=== PATIENT | female | born 1955 | race Caucasian/White ===

== ENCOUNTER 2017-04-09 12:34 | Observation (INO) | payer OTHER ==
--- NOTE | 2017-04-09 12:56 | ED ---
General Adult HPI - General Chief complaint: Chest Pain Stated complaint: Abnormal EKG Time Seen by Provider: 04/09/17 12:51 Source: patient, RN notes reviewed, old records reviewed Mode of arrival: wheelchair Limitations: no limitations - History of Present Illness Initial comments: This is a 7-year-old female to the ER for evaluation regards to chest pain. Patient is having anterior chest pain. Patient has long remote history of smoking. Patient has had chest pain in the past but not as significant. Pain started yesterday with nausea dizziness and some fatigue. Today she had anterior heaviness chest in the back across her shoulders. No fever cough or congestion, no shortness of breath or diaphoresis - Related Data Home Medications Medication Instructions Recorded Confirmed Escitalopram [Lexapro] 20 mg PO DAILY 09/29/14 04/09/17 Losartan [Cozaar] 25 mg PO DAILY 04/09/17 04/09/17 Magnesium Oxide 400 mg PO DAILY 04/09/17 04/09/17 Metoprolol Succinate (ER) [Toprol 50 mg PO DAILY 04/09/17 04/09/17 Xl] Pregabalin [Lyrica] 50 mg PO TID 04/09/17 04/09/17 buPROPion XL [Wellbutrin Xl] 150 mg PO DAILY 04/09/17 04/09/17 Previous Rx's Medication Instructions Recorded Aspirin 325 mg PO DAILY #30 tab 04/26/15 Allergies Allergy/AdvReac Type Severity Reaction Status Date / Time No Known Allergies Allergy Verified 04/09/17 13:22 Review of Systems ROS Statement: Those systems with pertinent positive or pertinent negative responses have been documented in the HPI. ROS Other: All systems not noted in ROS Statement are negative. Past Medical History Past Medical History: Hyperlipidemia Additional Past Medical History / Comment(s): Neuropothy, Chonic Bronchitits History of Any Multi-Drug Resistant Organisms: None Reported Past Surgical History: Appendectomy, Cholecystectomy Additional Past Surgical History / Comment(s): left Elbow surgary, LAP BAND 2007 Past Anesthesia/Blood Transfusion Reactions: No Reported Reaction Past Psychological History: No Psychological Hx Reported Smoking Status: Former smoker Past Alcohol Use History: None Reported Past Drug Use History: None Reported - Past Family History Daughter(s) Family Medical History: Blood Disorder Additional Family Medical History / Comment(s): Blood factor number 2. blood clots frequently, causes lesions on the brain. also has MS. General Exam Limitations: no limitations General appearance: alert, in no apparent distress Head exam: Present: atraumatic, normocephalic, normal inspection Eye exam: Present: normal appearance, PERRL, EOMI. Absent: scleral icterus, conjunctival injection, periorbital swelling ENT exam: Present: normal exam, mucous membranes moist Neck exam: Present: normal inspection. Absent: tenderness, meningismus, lymphadenopathy Respiratory exam: Present: normal lung sounds bilaterally. Absent: respiratory distress, wheezes, rales, rhonchi, stridor Cardiovascular Exam: Present: regular rate, normal rhythm, normal heart sounds. Absent: systolic murmur, diastolic murmur, rubs, gallop, clicks GI/Abdominal exam: Present: soft, normal bowel sounds. Absent: distended, tenderness, guarding, rebound, rigid Extremities exam: Present: normal inspection, full ROM, normal capillary refill. Absent: tenderness, pedal edema, joint swelling, calf tenderness Back exam: Present: normal inspection Neurological exam: Present: alert, oriented X3, CN II-XII intact Psychiatric exam: Present: normal affect, normal mood Skin exam: Present: warm, dry, intact, normal color. Absent: rash Course Vital Signs 04/09/17 04/09/17 04/09/17 12:47 14:00 15:08 Temperature 97.6 F 98.2 F Pulse Rate 74 62 59 L Respiratory 18 18 18 Rate Blood Pressure 163/83 141/63 152/82 O2 Sat by Pulse 97 98 97 Oximetry - Reevaluation(s) Reevaluation #1: 04/09/17 15:28 Patient has relaxing unremitting chest pain here in the emergency room heaviness on her chest EKG Findings - EKG Comments: EKG Findings:: EKG shows normal sinus rhythm rate of 72, SC 148, QRS 80, QTC 479 Medical Decision Making - Medical Decision Making 61 female the ER for evaluation. Patient was is stay for evaluation of chest pain. Severe chest pain. Does better on her back. X-rays CT negative troponin negative patient will be admitted for cardiac observation - Lab Data Result diagrams: 04/09/17 13:30 04/09/17 13:30 Lab Results 04/09/17 04/09/17 04/09/17 Range/Units 13:30 13:30 13:30 WBC 7.4 (3.8-10.6) k/uL RBC 4.92 (3.80-5.40) m/uL Hgb 14.2 (11.4-16.0) gm/dL Hct 45.0 (34.0-46.0) % MCV 91.5 (80.0-100.0) fL MCH 28.8 (25.0-35.0) pg MCHC 31.5 (31.0-37.0) g/dL RDW 14.9 (11.5-15.5) % Plt Count 307 (150-450) k/uL Neutrophils % 58 % Lymphocytes % 27 % Monocytes % 8 % Eosinophils % 4 % Basophils % 1 % Neutrophils # 4.3 (1.3-7.7) k/uL Lymphocytes # 2.0 (1.0-4.8) k/uL Monocytes # 0.6 (0-1.0) k/uL Eosinophils # 0.3 (0-0.7) k/uL Basophils # 0.1 (0-0.2) k/uL PT (9.0-12.0) sec INR (<1.2) APTT (22.0-30.0) sec Sodium 139 (137-145) mmol/L Potassium 4.3 (3.5-5.1) mmol/L Chloride 103 (98-107) mmol/L Carbon Dioxide 28 (22-30) mmol/L Anion Gap 8 mmol/L BUN 13 (7-17) mg/dL Creatinine 0.76 (0.52-1.04) mg/dL Est GFR (MDRD) Af Amer >60 (>60 ml/min/1.73 sqM) Est GFR (MDRD) Non-Af >60 (>60 ml/min/1.73 sqM) Glucose 95 (74-99) mg/dL Calcium 9.5 (8.4-10.2) mg/dL Magnesium 2.1 (1.6-2.3) mg/dL Total Bilirubin 1.0 (0.2-1.3) mg/dL AST 21 (14-36) U/L ALT 37 (9-52) U/L Alkaline Phosphatase 103 (38-126) U/L Total Creatine Kinase 65 (30-135) U/L CK-MB (CK-2) 0.8 (0.0-2.4) ng/mL CK-MB (CK-2) Rel Index 1.2 Troponin I <0.012 (0.000-0.034) ng/mL NT-Pro-B Natriuret Pep pg/mL Total Protein 6.3 (6.3-8.2) g/dL Albumin 3.8 (3.5-5.0) g/dL Lipase 65 (23-300) U/L 04/09/17 04/09/17 Range/Units 13:30 13:30 WBC (3.8-10.6) k/uL RBC (3.80-5.40) m/uL Hgb (11.4-16.0) gm/dL Hct (34.0-46.0) % MCV (80.0-100.0) fL MCH (25.0-35.0) pg MCHC (31.0-37.0) g/dL RDW (11.5-15.5) % Plt Count (150-450) k/uL Neutrophils % % Lymphocytes % % Monocytes % % Eosinophils % % Basophils % % Neutrophils # (1.3-7.7) k/uL Lymphocytes # (1.0-4.8) k/uL Monocytes # (0-1.0) k/uL Eosinophils # (0-0.7) k/uL Basophils # (0-0.2) k/uL PT 10.2 (9.0-12.0) sec INR 1.0 (<1.2) APTT 22.5 (22.0-30.0) sec Sodium (137-145) mmol/L Potassium (3.5-5.1) mmol/L Chloride (98-107) mmol/L Carbon Dioxide (22-30) mmol/L Anion Gap mmol/L BUN (7-17) mg/dL Creatinine (0.52-1.04) mg/dL Est GFR (MDRD) Af Amer (>60 ml/min/1.73 sqM) Est GFR (MDRD) Non-Af (>60 ml/min/1.73 sqM) Glucose (74-99) mg/dL Calcium (8.4-10.2) mg/dL Magnesium (1.6-2.3) mg/dL Total Bilirubin (0.2-1.3) mg/dL AST (14-36) U/L ALT (9-52) U/L Alkaline Phosphatase (38-126) U/L Total Creatine Kinase (30-135) U/L CK-MB (CK-2) (0.0-2.4) ng/mL CK-MB (CK-2) Rel Index Troponin I (0.000-0.034) ng/mL NT-Pro-B Natriuret Pep 71 pg/mL Total Protein (6.3-8.2) g/dL Albumin (3.5-5.0) g/dL Lipase (23-300) U/L - Radiology Data Radiology results: report reviewed (Chest x-ray and CT chest are negative), image reviewed Critical Care Time Critical Care Time: Yes Total Critical Care Time: 31 Disposition Clinical Impression: Chest pain Disposition: ADMITTED IP TO THIS [facility] Condition: Undetermined Referrals: Feroz Toney MD [Primary Care Provider] - 1-2 days
[2017-04-09 13:50] LABS: Basophils # (A) 0.1 k/uL (0-0.2); Basophils % (A) 1 %; Eosinophils # (A) 0.3 k/uL (0-0.7); Eosinophils % (A) 4 %; HGB 14.2 gm/dL (11.4-16.0); Lymphocytes % (A) 27 %; MCH 28.8 pg (25.0-35.0); MCHC 31.5 g/dL (31.0-37.0); MCV 91.5 fL (80.0-100.0); Mean Platelet Volume 8.1; Monocytes # (A) 0.6 k/uL (0-1.0); Monocytes % (A) 8 %; Neutrophils # (A) 4.3 k/uL (1.3-7.7); Neutrophils % (A) 58 %; Platelet Count 307 k/uL (150-450); RBC 4.92 m/uL (3.80-5.40); RDW 14.9 % (11.5-15.5); WBC 7.4 k/uL (3.8-10.6)
[2017-04-09 13:55] LABS: Partial Thromboplastin Time 22.5 sec (22.0-30.0); Prothrombin Time 10.2 sec (9.0-12.0)
[2017-04-09 14:00] LABS: ALT 37 U/L (9-52); AST 21 U/L (14-36); Albumin 3.8 g/dL (3.5-5.0); Alkaline Phosphatase 103 U/L (38-126); Anion Gap 8 mmol/L; Blood Urea Nitrogen 13 mg/dL (7-17); Calcium 9.5 mg/dL (8.4-10.2); Carbon Dioxide 28 mmol/L (22-30); Chloride 103 mmol/L (98-107); Glucose 95 mg/dL (74-99); Lipase 65 U/L (23-300); Magnesium 2.1 mg/dL (1.6-2.3); Potassium 4.3 mmol/L (3.5-5.1); Sodium 139 mmol/L (137-145); Total Protein 6.3 g/dL (6.3-8.2)
--- NOTE | 2017-04-09 14:13 | XR ---
EXAMINATION TYPE: XR chest 2V DATE OF EXAM: 04/09/2017 COMPARISON: 04/24/2015 HISTORY: 61-year-old female with chest pain TECHNIQUE: Frontal and lateral views FINDINGS: Heart border line enlarged. Mild diffuse interstitial prominence similar to prior. No consolidation o r pleural effusion seen though the left base is underpenetrated limiting its assessment. IMPRESSION: Borderline heart size. Chronic-appearing changes, possible bronchitis/asthma. No definite acute proce ss otherwise seen.
[2017-04-09] MEDS ORDERED: RX INFO: IV CONTRAST WAS GIVEN 1 EACH MISC MISCELLANE PRN (14:14)
[2017-04-09] MEDS ORDERED: SODIUM CHLORIDE 0.9% 1,000 ML IV STA (14:14)
[2017-04-09 14:15] LABS: Creatine Kinase 65 U/L (30-135)
[2017-04-09 14:26] LABS: Creatine Kinase MB 0.8 ng/mL (0.0-2.4); Troponin I <0.012 ng/mL (0.000-0.034)
--- NOTE | 2017-04-09 14:53 | CT ---
EXAMINATION TYPE: CT angio chest DATE OF EXAM: 04/09/2017 COMPARISON: NONE HISTORY: Patient complains of difficulty breathing and chest pain. CT DLP: 625.5 mGycm CONTRAST: CT chest with contrast and 3D reconstruction with MIP imaging is performed with IV Contrast, patient injected with 100 mL of Omnipaque 350. Contrast-enhanced CT of the chest was performed through the course of the pulmonary arteries with rae g and mediastinal window settings submitted. 3D reconstruction with MIP imaging was also performed. PULMONARY ARTERIES: The pulmonary arteries and their major tributaries are patent. I do not see amanda dence for sizable filling defect to suggest pulmonary embolic process. LUNGS: The lungs are clear and free of infiltrate. No evidence for atelectasis. No pulmonary nodule or mass is detected. No pleural effusion. MEDIASTINUM: Thoracic aorta is of normal caliber . The heart is not enlarged. No evidence for media stinal mass. No mediastinal lymph nodes greater than 1cm. Left thyroid nodule measures approximately 3.4 cm. HILAR STRUCTURES: No evidence for mass. No hilar lymph nodes greater than 1 cm. UPPER ABDOMEN: There is evidence of pneumobilia. Gastric banding device is in place. Scoliotic curvat ure thoracic spine convex to the right.. IMPRESSION: 1. No evidence for Pulmonary embolism at this time.
[2017-04-09] MEDS ORDERED: HEPARIN SODIUM,PORCINE 5,000 UNIT/ML 1 ML VIAL IV ONE (15:26)
[2017-04-09] MEDS ORDERED: MORPHINE SULFATE 2 MG/ML SYRINGE IV PRN (15:26)
[2017-04-09] MEDS ORDERED: NITROGLYCERIN SL TABS 0.4 MG TAB SUBLINGUAL PRN (15:26)
[2017-04-09] MEDS ORDERED: ASPIRIN 81 MG PO STA (15:26)
[2017-04-09] MEDS ORDERED: HEPARIN SOD,PORK IN 0.45% NACL 25,000 UNIT in 0.45% NACL 1 500ML.BAG IV SCH (15:30)
[2017-04-09] MEDS ORDERED: ACETAMINOPHEN TAB 325 MG TAB PO PRN (19:37)
[2017-04-09 19:52] LABS: Creatine Kinase 56 U/L (30-135)
[2017-04-09 20:02] LABS: Creatine Kinase MB 0.8 ng/mL (0.0-2.4); Troponin I <0.012 ng/mL (0.000-0.034)
[2017-04-09] MEDS: METOPROLOL TARTRATE 25 MG TAB PO SCH (20:52)
[2017-04-09] MEDS: PREGABALIN 50 MG CAP PO SCH (20:52)
[2017-04-09] MEDS ORDERED: ALBUTEROL NEBULIZED 2.5 MG/3 ML INHALATION PRN (22:19)
--- NOTE | 2017-04-09 22:25 | P.HPIM ---
History of Present Illness H&P Date: 04/09/17 Chief Complaint: Chest pain Patient is a 61-year-old female with known history of hyperlipidemia, hypertension and depression came to the hospital with complaints of chest pain. Pain is mainly across upper back of the chest and between the shoulder blades which has been present for the past 2 days. Today patient also developed jaw tingling and shortness of breath. No cough or sputum production. No fever no chills. Patient also felt nauseated in the morning. No abscess or vomiting. Denied any recent illnesses or sick contacts at home. No recent travel. Denied any injury otherwise. Patient had previous stress test in November [address] angiogram showed no recurrence of pulmonary embolism Chest x-ray showed borderline heart size. Chronic changes possible bronchitis/ asthma. No definitive acute process. Troponin 2 negative Review of Systems Constitutional: Patient denies any fever or chills . No generalized weakness or weight loss. Abdomen: Patient denied nausea vomiting and diarrhea and abdominal pain. Cardiovascular: Patient denies any chest pain or short of breath no palpitations. Respiratory: patient denied any cough is from production. No shortness of breath Neurologic: Patient denied any numbness or tingling headache. Musculoskeletal: Patient denies any complaints of joint swelling or deformity. Skin: Negative Psychiatric: Negative Endocrine: No heat or cold intolerance. No recent weight gain. Genitourinary: No dysuria or hematuria. All other 14 point ROS negative except the above Past Medical History Past Medical History: Hyperlipidemia Additional Past Medical History / Comment(s): Neuropothy, Chonic Bronchitits History of Any Multi-Drug Resistant Organisms: None Reported Past Surgical History: Appendectomy, Cholecystectomy Additional Past Surgical History / Comment(s): left Elbow surgary, LAP BAND 2007 Past Anesthesia/Blood Transfusion Reactions: No Reported Reaction Past Psychological History: No Psychological Hx Reported Smoking Status: Former smoker Past Alcohol Use History: None Reported Past Drug Use History: None Reported - Past Family History Daughter(s) Family Medical History: Blood Disorder Additional Family Medical History / Comment(s): Blood factor number 2. blood clots frequently, causes lesions on the brain. also has MS. Father Family Medical History: Cancer, Myocardial Infarction ([place]) Additional Family Medical History / Comment(s): thyroid cancer Mother Family Medical History: Cancer, Congestive Heart Failure (CHF) Additional Family Medical History / Comment(s): pancareatic cancer Medications and Allergies Home Medications Medication Instructions Recorded Confirmed Type Escitalopram [Lexapro] 20 mg PO DAILY 09/29/14 04/09/17 History Aspirin 325 mg PO DAILY #30 tab 04/26/15 04/09/17 Rx Losartan [Cozaar] 25 mg PO DAILY 04/09/17 04/09/17 History Magnesium Oxide 400 mg PO DAILY 04/09/17 04/09/17 History Metoprolol Succinate (ER) [Toprol 50 mg PO DAILY 04/09/17 04/09/17 History Xl] Pregabalin [Lyrica] 50 mg PO TID 04/09/17 04/09/17 History buPROPion XL [Wellbutrin Xl] 150 mg PO DAILY 04/09/17 04/09/17 History Allergies Allergy/AdvReac Type Severity Reaction Status Date / Time No Known Allergies Allergy Verified 04/09/17 13:22 Physical Exam Vitals: Vital Signs Temp Pulse Resp BP Pulse Ox 04/09/17 15:52 63 17 156/79 98 04/09/17 15:08 98.2 F 59 L 18 152/82 97 04/09/17 14:00 62 18 141/63 98 04/09/17 12:47 97.6 F 74 18 163/83 97 Intake and Output 04/09/17 04/09/17 04/09/17 06:59 14:59 22:59 Other: Weight 136.078 kg Patient Weight 04/10/17 06:59 Weight 136.078 kg PHYSICAL EXAMINATION: Patient is lying in the bed comfortably, no acute distress, awake alert and oriented.. HEENT: Normocephalic. Neck is supple. Pupils reactive. Nostrils clear. Oral cavity is moist. Ears reveal no drainage. Neck reveals no JVD, carotid bruits, or thyromegaly. CHEST EXAMINATION: Trachea is central. Symmetrical expansion. Lung roberts clear to auscultation and percussion. CARDIAC: Normal S1, S2 with no gallops. No murmurs ABDOMEN: Soft. Bowel sounds normal. No organomegaly. No abdominal bruits. Extremities: reveal no edema. No clubbing or cyanosis Neurologically awake, alert, oriented x3 with well-coordinated movements. No focal deficits noted Skin: No rash or skin lesions. Psychiatric: Coperative. Nonsuicidal Musculoskeletal: No joint swelling or deformity. Normal range of motion. Results CBC & Chem 7: 04/09/17 13:30 04/09/17 13:30 Thrombosis Risk Factor Assmnt - DVT/VTE Prophylaxis DVT/VTE Prophylaxis: Pharmacologic Prophylaxis ordered Assessment and Plan Assessment: Atypical chest pain possible unstable angina Hypertension Hyperlipidemia Bronchial asthma Depression Morbid obesity with BMI 42.8 Plan: Patient was started on heparin drip and will continue with telemetry monitoring and serial EKG and troponins. Cardiology evaluation. CTA showed no evidence of pulmonary embolism or dissection. Continue the home medications and albuterol nebulization when necessary. Further recommendations based on the clinical course. Time with Patient: Greater than 30
[2017-04-09] MEDS: HEPARIN SODIUM,PORCINE 5,000 UNIT/ML 1 ML VIAL IV PRN (22:33)
[2017-04-10 01:19] LABS: Creatine Kinase 47 U/L (30-135)
[2017-04-10 01:32] LABS: Creatine Kinase MB 0.8 ng/mL (0.0-2.4); Troponin I <0.012 ng/mL (0.000-0.034)
[2017-04-10 04:39] LABS: Mean Platelet Volume 7.2; Platelet Count 304 k/uL (150-450)
[2017-04-10] MEDS: HEPARIN SODIUM,PORCINE 5,000 UNIT/ML 1 ML VIAL IV PRN (05:26)
[2017-04-10] MEDS ORDERED: ASPIRIN 325 MG TAB PO SCH (09:00)
[2017-04-10] MEDS ORDERED: ESCITALOPRAM 20 MG TAB PO SCH (09:00)
[2017-04-10] MEDS ORDERED: ATORVASTATIN 80 MG TAB PO SCH (09:00)
[2017-04-10] MEDS ORDERED: buPROPion XL 150 MG TAB.ER.24H PO SCH (09:00)
[2017-04-10] MEDS ORDERED: LOSARTAN 25 MG TAB PO SCH (09:00)
[2017-04-10] MEDS ORDERED: MAGNESIUM OXIDE 400 MG TAB PO SCH (09:00)
[2017-04-10] MEDS: PREGABALIN 50 MG CAP PO SCH (09:27)
[2017-04-10] MEDS: METOPROLOL TARTRATE 25 MG TAB PO SCH (09:27)
--- NOTE | 2017-04-10 10:46 | ECHOF ---
Referral Reason:chest pain MEASUREMENTS -------- HEIGHT: 152.4 cm WEIGHT: 135.2 kg BP: RVIDd: 2.8 cm (< 3.3) IVSd: 1.3 cm (0.6 - 1.1) LVIDd: 4.7 cm (3.9 - 5.3) LVPWd: 1.1 cm (0.6 - 1.1) IVSs: 1.8 cm LVIDs: 3.6 cm LVPWs: 1.6 cm LA Diam: 2.8 cm (2.7 - 3.8) Ao Diam: 3.3 cm (2.0 - 3.7) AV Cusp: 2.1 cm (1.5 - 2.6) LA Diam: 3.3 cm (2.7 - 3.8) MV EXCURSION: 20.824 mm (> 18.000) MV EF SLOPE: 83 mm/s (70 - 150) EPSS: 0.7 cm MV E Cory: 0.68 m/s MV DecT: 197 ms MV A Cory: 0.75 m/s MV E/A Ratio: 0.91 RAP: 5.00 mmHg RVSP: 21.80 mmHg FINDINGS -------- Sinus rhythm. This was a technically adequate study. Morbid Obesity The left ventricular size is normal. There is moderate concentric left ventricular hypertrophy. O verall left ventricular systolic function is low-normal with, an EF between 50 - 55 %. The right ventricle is normal in size. The left atrial size is normal. The right atrial size is normal. The aortic valve is trileaflet, and appears structurally normal. No aortic stenosis or regurgitation. Mild mitral regurgitation is present. Mild tricuspid regurgitation present. There is no evidence of pulmonary hypertension. The right v entricular systolic pressure, as measured by Doppler, is 21.80mmHg. There is no pulmonic regurgitation present. The aortic root size is normal. There is no pericardial effusion. CONCLUSIONS -------- 1. Morbid Obesity 2. The left ventricular size is normal. 3. There is moderate concentric left ventricular hypertrophy. 4. Overall left ventricular systolic function is low-normal with, an EF between 50 - 55 %. 5. The aortic valve is trileaflet, and appears structurally normal. No aortic stenosis or regurgitati on. 6. Mild mitral regurgitation is present. 7. Mild tricuspid regurgitation present. 8. There is no evidence of pulmonary hypertension. 9. The right ventricular systolic pressure, as measured by Doppler, is 21.80mmHg. 10. There is no pulmonic regurgitation present. 11. The aortic root size is normal. 12. There is no pericardial effusion. STRATEGIC PLANNING SPECIALIST: Maggi Rizo RDCS
[2017-04-10 11:53] VITALS: BP 106/64; PULSE 59; RESP 18; TEMP 98.1
--- NOTE | 2017-04-10 12:27 | P.CRDCN ---
History of Present Illness Consult date: 04/10/17 Consult reason: chest pain History of present illness: Mrs. King is a pleasant 61-year-old female past medical history significant for hypertension, dyslipidemia, TIA and former tobacco use. The past 2 days she has been experiencing mid and upper right-sided back pain. The pain then radiated around to the anterior mid sternal chest region. This is associated with mild shortness of breath and mild nausea. She also describes intermittent tingling of the right jaw and right fingers. The pain is worse with movement and reproducible with palpation. When asked to move forward in bed for lung examination she groaned and winced in pain. She denies associated dizziness, palpitations, diaphoresis or vomiting. EKG on arrival reveals sinus mechanism with no acute ST or T-wave abnormality Chest x-ray negative for acute cardiopulmonary process. CT angiography negative for pulmonary embolism. Laboratory data reviewed, cardiac enzymes negative 3, LDL 110, hemoglobin 14.2 , platelets 304, magnesium 2.1, potassium 4.3. Current cardiac medications include Toprol 50 mg daily, losartan 25 mg daily and aspirin 325 mg daily per neurology. Most recent echocardiogram was performed in February 2016 revealed preserved left ventricular systolic function with EF 60-65% and no valvular heart disease. Most recent stress test was performed February 2016 and was a negative dobutamine stress echocardiogram. Telemetry tracings from last night reveal an episode of nonsustained ventricular tachycardia 5 beats. Review of Systems CONSTITUTIONAL: Denies fever. Denies chills. EYES: Denies blurred vision. Denies vision changes. Denies eye pain. EARS, NOSE, MOUTH & THROAT: Denies headache. Denies sore throat. Denies ear pain. CARDIOVASCULAR: Complains of reproducible midsternal chest pain with shortness of breath. Denies orthopnea. Denies PND. Denies palpitations. RESPIRATORY: Denies cough. GASTROINTESTINAL: Denies abdominal pain. Denies diarrhea. Denies constipation. Denies nausea. Denies vomiting. MUSCULOSKELETAL: Complains of upper back pain, worse with movement. INTEGUMENTARY: Denies pruitis. Denies rash. NEUROLOGIC: Denies numbness. Denies tingling. Denies weakness. PSYCHIATRIC: Denies anxiety. Denies depression. ENDOCRINE: Denies fatigue. Denies weight change. Denies polydipsia. Denies polyurina. GENITOURINARY: Denies burning, hematuria or urgency with micturation. HEMATOLOGIC: Denies history of anemia. Denies bleeding. Past Medical History Past Medical History: Hyperlipidemia Additional Past Medical History / Comment(s): Neuropothy, Chonic Bronchitits History of Any Multi-Drug Resistant Organisms: None Reported Past Surgical History: Appendectomy, Cholecystectomy Additional Past Surgical History / Comment(s): left Elbow surgary, LAP BAND 2008 Past Anesthesia/Blood Transfusion Reactions: No Reported Reaction Past Psychological History: No Psychological Hx Reported Smoking Status: Former smoker Past Alcohol Use History: None Reported Past Drug Use History: None Reported - Past Family History Father Family Medical History: Cancer, Myocardial Infarction (CO) Additional Family Medical History / Comment(s): thyroid cancer Mother Family Medical History: Cancer, Congestive Heart Failure (CHF) Additional Family Medical History / Comment(s): pancareatic cancer Daughter(s) Family Medical History: Blood Disorder Additional Family Medical History / Comment(s): Blood factor number 2. blood clots frequently, causes lesions on the brain. also has MS. Medications and Allergies Home Medications Medication Instructions Recorded Confirmed Type Escitalopram [Lexapro] 20 mg PO DAILY 09/29/14 04/09/17 History Aspirin 325 mg PO DAILY #30 tab 04/26/15 04/09/17 Rx Losartan [Cozaar] 25 mg PO DAILY 04/09/17 04/09/17 History Magnesium Oxide 400 mg PO DAILY 04/09/17 04/09/17 History Metoprolol Succinate (ER) [Toprol 50 mg PO DAILY 04/09/17 04/09/17 History Xl] Pregabalin [Lyrica] 50 mg PO TID 04/09/17 04/09/17 History buPROPion XL [Wellbutrin Xl] 150 mg PO DAILY 04/09/17 04/09/17 History Allergies Allergy/AdvReac Type Severity Reaction Status Date / Time No Known Allergies Allergy Verified 04/09/17 13:22 Physical Exam Vitals: Vital Signs Temp Pulse Pulse Pulse Resp BP BP 04/10/17 08:00 97.7 F 60 16 161/86 04/10/17 04:00 97.4 F L 56 L 16 129/70 04/10/17 03:41 16 04/10/17 00:00 97.7 F 63 16 96/48 04/09/17 23:55 16 04/09/17 20:00 98.0 F 69 16 153/79 04/09/17 16:53 98 F 63 16 166/79 04/09/17 15:52 63 17 156/79 04/09/17 15:08 98.2 F 59 L 18 152/82 04/09/17 14:00 62 18 141/63 04/09/17 13:30 63 04/09/17 12:47 97.6 F 74 18 163/83 Pulse Ox 04/10/17 08:00 94 L 04/10/17 04:00 94 L 04/10/17 03:41 04/10/17 00:00 100 04/09/17 23:55 04/09/17 20:00 94 L 04/09/17 16:53 96 04/09/17 15:52 98 04/09/17 15:08 97 04/09/17 14:00 98 04/09/17 13:30 04/09/17 12:47 97 Intake and Output 04/09/17 04/10/17 04/10/17 22:59 06:59 14:59 Intake Total 124.667 430.08 Balance 124.667 430.08 Intake: IV 240 0.9@20 120 Heparin Sod,Pork in 0.45% 120 NaCl 25,000 unit In 0.45 % NaCl 1 500ml.bag @ 7. 349 UNITS/KG/HR 20 mls/hr IV .Q24H RANDY Rx#: [id number] Intake, IV Titration 124.667 190.08 Amount Heparin Sod,Pork in 0.45% 124.667 190.08 NaCl 25,000 unit In 0.45 % NaCl 1 500ml.bag @ 7. 349 UNITS/KG/HR 20 mls/hr IV .Q24H RANDY Rx#: [id number] Other: Voiding Method Toilet Toilet # Voids 1 Weight 135.307 kg Blood pressure 129/70 heart rate 56 afebrile GENERAL: This is a 61-year-old female in no apparent distress at the time of my examination. Morbidly obese. HEENT: Head is atraumatic, normocephalic. Pupils are equal, round. Sclerae anicteric. Conjunctivae are clear. Mucous membranes of the mouth are moist. Neck is supple. There is no jugular venous distention. No carotid bruit is heard. LUNGS: Clear to auscultation no wheezes, rales or rhonchi. No chest wall tenderness is noted on palpation or with deep breathing. HEART: Regular rate and rhythm without murmurs, rubs or gallops. S1 and S2 heard. ABDOMEN: Soft, nontender. Bowel sounds are heard. No organomegaly noted. EXTREMITIES: No evidence of peripheral edema and no calf tenderness noted. VASCULAR: Radial and dorsalis pedis pulses palpated, no evidence of clubbing. NEUROLOGIC: Patient is awake, alert and oriented x3. Results 04/10/17 04:10 04/09/17 13:30 Cardiac Enzymes 04/09/17 04/09/17 04/09/17 Range/Units 13:30 13:30 19:10 AST 21 (14-36) U/L CK-MB (CK-2) 0.8 0.8 (0.0-2.4) ng/mL Troponin I <0.012 <0.012 (0.000-0.034) ng/mL 04/10/17 Range/Units 00:38 AST (14-36) U/L CK-MB (CK-2) 0.8 (0.0-2.4) ng/mL Troponin I <0.012 (0.000-0.034) ng/mL Coagulation 04/09/17 04/09/17 04/10/17 Range/Units 13:30 21:48 04:10 PT 10.2 (9.0-12.0) sec APTT 22.5 25.8 43.7 H (22.0-30.0) sec Lipids 04/10/17 Range/Units 04:10 Triglycerides 91 (<150) mg/dL Cholesterol 184 (<200) mg/dL HDL Cholesterol 56 (40-60) mg/dL CBC 04/09/17 04/10/17 Range/Units 13:30 04:10 WBC 7.4 (3.8-10.6) k/uL RBC 4.92 (3.80-5.40) m/uL Hgb 14.2 (11.4-16.0) gm/dL Hct 45.0 (34.0-46.0) % Plt Count 307 304 (150-450) k/uL Comprehensive Metabolic Panel 04/09/17 Range/Units 13:30 Sodium 139 (137-145) mmol/L Potassium 4.3 (3.5-5.1) mmol/L Chloride 103 (98-107) mmol/L Carbon Dioxide 28 (22-30) mmol/L BUN 13 (7-17) mg/dL Creatinine 0.76 (0.52-1.04) mg/dL Glucose 95 (74-99) mg/dL Calcium 9.5 (8.4-10.2) mg/dL AST 21 (14-36) U/L ALT 37 (9-52) U/L Alkaline Phosphatase 103 (38-126) U/L Total Protein 6.3 (6.3-8.2) g/dL Albumin 3.8 (3.5-5.0) g/dL Current Medications Generic Name Dose Route Start Last Admin Trade Name Freq PRN Reason Stop Dose Admin Acetaminophen 650 mg 04/09/17 19:37 04/09/17 20:17 Tylenol Tab PO 650 mg Q4HR PRN Administration Fever and/ or Pain Albuterol Sulfate 2.5 mg 04/09/17 22:19 Ventolin Nebulized INHALATION RT-TID PRN Shortness Of Breath Or Wheezing Aspirin 325 mg 04/10/17 09:00 Aspirin PO DAILY [facility] Atorvastatin Calcium 80 mg 04/10/17 09:00 Lipitor PO DAILY [facility] Bupropion HCl 150 mg 04/10/17 09:00 Wellbutrin Xl PO DAILY [facility] Escitalopram Oxalate 20 mg 04/10/17 09:00 Lexapro PO DAILY [facility] Heparin Sodium (Porcine) 0 unit 04/09/17 15:26 04/10/17 05:26 Heparin IV 3,375 unit Q6HR PRN Administration Low PTT Protocol Heparin Sodium/Sodium Chloride 500 mls @ 20 mls/hr 04/09/17 15:30 04/10/17 05 :17 25,000 unit/ Sodium Chloride IV 12.349 units/kg/hr .Q24H RANDY 33.6 mls/hr Protocol Titration 7.349 UNITS/KG/HR Losartan Potassium 25 mg 04/10/17 09:00 Cozaar PO DAILY [facility] Magnesium Oxide 400 mg 04/10/17 09:00 Mag-Ox PO DAILY [facility] Metoprolol Tartrate 25 mg 04/09/17 21:00 04/09/17 20:52 Lopressor PO 25 mg BID RANDY Administration Miscellaneous Information 1 each 04/09/17 14:14 04/09/17 15:07 Rx Info: Iv Contrast Was Given MISCELLANE 04/11/17 14:14 1 each DAILY PRN Administration Per Protocol Morphine Sulfate 4 mg 04/09/17 15:26 04/09/17 20:59 Morphine Sulfate (Inj) IV 4 mg Q5M PRN Administration Chest Pain Nitroglycerin 0.4 mg 04/09/17 15:26 Nitrostat SUBLINGUAL Q5M PRN Chest Pain Pregabalin 50 mg 04/09/17 22:00 04/09/17 20:52 Lyrica PO 50 mg TID RANDY Administration Intake and Output 04/09/17 04/10/17 04/10/17 22:59 06:59 14:59 Intake Total 124.667 430.08 Balance 124.667 430.08 Intake: IV 240 0.9@20 120 Heparin Sod,Pork in 0.45% 120 NaCl 25,000 unit In 0.45 % NaCl 1 500ml.bag @ 7. 349 UNITS/KG/HR 20 mls/hr IV .Q24H [facility]ANDY Rx#: [id number] Intake, IV Titration 124.667 190.08 Amount Heparin Sod,Pork in 0.45% 124.667 190.08 NaCl 25,000 unit In 0.45 % NaCl 1 500ml.bag @ 7. 349 UNITS/KG/HR 20 mls/hr IV .Q24H RANDY Rx#: [id number] Other: Voiding Method Toilet Toilet # Voids 1 Weight 135.307 kg 04/10/17 04:10 04/09/17 13:30 Assessment and Plan Assessment: ASSESSMENT 1. Musculoskeletal chest pain, atypical for an acute coronary event. 2. History of hypertension 3. Dyslipidemia 4. Nonsustained ventricular tachycardia, 5 beats. PLAN Obtain 2-D echocardiogram and Doppler study to assess cardiac structure and function. Check TSH. Continue with Toprol 50 mg daily and losartan 25 mg daily. Possible anti-inflammatory analgesia for back pain. No further cardiac workup at this time. Follow-up with Dr. Gonzalez in 2-3 weeks. Thank you kindly for this consultation. The above impression and plan of care have been discussed and directed by the signing physician. Gracy Ramachandran, nurse practitioner, acting as scribe for signing physician.
--- NOTE | 2017-04-10 13:47 | P.DS ---
Providers Date of admission: 04/09/17 15:26 Expected date of discharge: 04/10/17 Attending physician: Geoffrey Falcon Consults: 04/09/17 15:26 Consult Physician Urgent Consulting Provider: Gemma Gonzalez Consult Reason/Comments: cp Do you want consulting provider notified?: Yes Primary care physician: Dawna Redman [facility] Course: Diagnosis Atypical chest pain rule out ACS. Likely musculoskeletal Hypertension Hyperlipidemia Bronchial asthma Depression Morbid obesity with BMI 42.8 Hospital course Patient is a 61-year-old female with known history of hyperlipidemia, hypertension and depression came to the hospital with complaints of chest pain. Pain is mainly across upper back of the chest and between the shoulder blades which has been present for the past 2 days. Today patient also developed jaw tingling and shortness of breath. No cough or sputum production. No fever no chills. Patient also felt nauseated in the morning. No abscess or vomiting. Denied any recent illnesses or sick contacts at home. No recent travel. Denied any injury otherwise. Patient had previous stress test in November [address] angiogram showed no recurrence of pulmonary embolism Chest x-ray showed borderline heart size. Chronic changes possible bronchitis/ asthma. No definitive acute process. Troponin 3 negative Patient was started on heparin drip and continued with telemetry monitoring and serial EKG and troponins. Cardiology evaluation. CTA showed no evidence of pulmonary embolism or dissection. Continue the home medications and albuterol nebulization when necessary. He also recommended 2-D echocardiogram which showed normal ejection fraction and no wall motion abnormalities noted. Otherwise patient did improve symptomatically with pain management and is stable to discharge home. Recommended to follow with primary care physician in 1-3 days. PHYSICAL EXAMINATION: Patient is lying in the bed comfortably, no acute distress, awake alert and oriented.. HEENT: Normocephalic. Neck is supple. Pupils reactive. Nostrils clear. Oral cavity is moist. Ears reveal no drainage. Neck reveals no JVD, carotid bruits, or thyromegaly. CHEST EXAMINATION: Trachea is central. Symmetrical expansion. Lung roberts clear to auscultation and percussion. CARDIAC: Normal S1, S2 with no gallops. No murmurs ABDOMEN: Soft. Bowel sounds normal. No organomegaly. No abdominal bruits. Extremities: reveal no edema. No clubbing or cyanosis Neurologically awake, alert, oriented x3 with well-coordinated movements. No focal deficits noted Skin: No rash or skin lesions. Psychiatric: Coperative. Nonsuicidal Musculoskeletal: No joint swelling or deformity. Normal range of motion. Patient Condition at Discharge: Undetermined Plan - Discharge Summary Discharge Rx Participant: No New Discharge Prescriptions: Continue Escitalopram [Lexapro] 20 mg PO DAILY Aspirin 325 mg PO DAILY #30 tab buPROPion XL [Wellbutrin XL] 150 mg PO DAILY Pregabalin [Lyrica] 50 mg PO TID Metoprolol Succinate (ER) [Toprol XL] 50 mg PO DAILY Magnesium Oxide 400 mg PO DAILY Losartan [Cozaar] 25 mg PO DAILY Discharge Medication List Escitalopram [Lexapro] 20 mg PO DAILY 09/29/14 [History] Aspirin 325 mg PO DAILY #30 tab 04/26/15 [Rx] Losartan [Cozaar] 25 mg PO DAILY 04/09/17 [History] Magnesium Oxide 400 mg PO DAILY 04/09/17 [History] Metoprolol Succinate (ER) [Toprol XL] 50 mg PO DAILY 04/09/17 [History] Pregabalin [Lyrica] 50 mg PO TID 04/09/17 [History] buPROPion XL [Wellbutrin XL] 150 mg PO DAILY 04/09/17 [History] Follow up Appointment(s)/Referral(s): Gemma Gonzalez MD [STAFF PHYSICIAN] - 3 Weeks (Pt states she will make her own appointment.) Feroz Toney MD [Primary Care Provider] - 1-2 days Patient Instructions/Handouts: Chest Pain (DC) Discharge Disposition: HOME SELF-CARE
== END 2017-04-10 13:15 | disposition home or self-care (01) ==
LOC: EC 12:34 → 3OBS 15:26
PROVIDERS: ADMIT Hospitalist; ATTEND Hospitalist
DX: R07.89 Other chest pain (principal); R20.2 Paresthesia of skin; R11.0 Nausea; E78.5 Hyperlipidemia, unspecified; I10 Essential (primary) hypertension; I47.2 Ventricular tachycardia; G62.9 Polyneuropathy, unspecified; J45.909 Unspecified asthma, uncomplicated; F32.9 Major depressive disorder, single episode, unspecified; E66.01 Morbid (severe) obesity due to excess calories; Z68.41 Body mass index [BMI] 40.0-44.9, adult; Z98.84 Bariatric surgery status; Z87.891 Personal history of nicotine dependence; Z79.82 Long term (current) use of aspirin; Z79.899 Other long term (current) drug therapy; Z86.73 Personal history of transient ischemic attack (TIA), and cerebral infarction without residual deficits; Z80.0 Family history of malignant neoplasm of digestive organs; Z82.49 Family history of ischemic heart disease and other diseases of the circulatory system; Z80.8 Family history of malignant neoplasm of other organs or systems
CPT/HCPCS: 99291 ×2; 96361 ×2; 96365; 96366 ×2; 96375; 96376 ×2; 36415; 93005; 93306; 83880; 80061; 80053; 84443; 82550 ×2; 82553 ×2; 83690; 83735; 84484 ×2; 85025; 85049; 85610; 85730 ×2; 71046; 71275; G0378 ×2; J1644 ×3; Q9967; J2270

== ENCOUNTER → 2017-04-13 | Outpatient (CLI) | payer OTHER ==
[~2017-04-13] MED LIST: REGADENOSON 0.4 MG/5 ML SYRINGE IV ONE
--- NOTE | 2017-04-13 11:35 | NM ---
EXAMINATION TYPE: NM stress lexiscan cardiolite DATE OF EXAM: 04/13/2017 COMPARISON: NONE HISTORY: Precordial chest pain and abnormal EKG TECHNIQUE: After the intravenous administration of 11 mCi Tc 99m Sestamibi - Cardiolite resting SPEC T images acquired 45 minutes post injection. The patient received 0.4mg Lexiscan, 30 mCi Tc 99m Sestamibi - Stress images obtained 30 minutes post injection FINDINGS: Review of stress and rest SPECT images demonstrates decreased perfusion on stress imaging involving t he anterior wall. Stress-induced ischemia is not excluded. Gated analysis shows normal wall motion wi th an estimated left ventricular ejection fraction of 43 %. IMPRESSION: Stress-induced ischemia is not excluded anterior wall.
--- NOTE | 2017-04-13 11:36 | EST ---
EXERCISE STRESS DATE OF SERVICE: 04/13/2017 AGE: 61 SEX: Female HT: 70" WT: 299 pounds PROTOCOL: Lexiscan Cardiolite STAGE: DURATION OF EXERCISE: HEART RATE REST: 71 BLOOD PRESSURE REST: 135/102 MAXIMUM HEART RATE ACHIEVED: 83 MAXIMUM BLOOD PRESSURE: 210/97 85% MPHR: 100% MPHR: METS: INDICATIONS: Chest pain. CLINICAL INFORMATION: STRESS DATA: Pretesting physical examination showed a heart rate of 71, pressure is 85/102 mmHg. Baseline EKG shows sinus mechanism. A 0.4 mg of Lexiscan was given to the patient over 15 seconds per protocol. Max heart rate was 83 beats per minute and maximum pressure was 210/97 mmHg. Clinically, the patient did not have any symptoms of chest pain or discomfort. The EKG showed about 0.[address]-segment changes. CONCLUSION: 1. Nondiagnostic electrocardiogram stress testing in response to Lexiscan. 2. Please follow up on the Cardiolite portion on a separate report from radiology department. MMODL / IJN: [id number] /
== END | disposition home or self-care (01) ==
LOC: RADNMMAIN 08:23
PROVIDERS: ATTEND Internal Medicine
DX: R07.9 Chest pain, unspecified (principal)
CPT/HCPCS: 93017; 78452; A9500; J2785

== ENCOUNTER → 2017-04-17 | Outpatient (CLI) | payer OTHER ==
[2017-04-17 16:30] LABS: HGB 14.1 gm/dL (11.4-16.0); MCH 29.7 pg (25.0-35.0); MCHC 32.1 g/dL (31.0-37.0); MCV 92.5 fL (80.0-100.0); Platelet Count 320 k/uL (150-450); RBC 4.76 m/uL (3.80-5.40); WBC 7.5 k/uL (3.8-10.6)
[2017-04-17 16:38] LABS: Anion Gap 9 mmol/L; Blood Urea Nitrogen 17 mg/dL (7-17); Calcium 9.6 mg/dL (8.4-10.2); Carbon Dioxide 31 mmol/L (22-30); Chloride 102 mmol/L (98-107); Glucose 99 mg/dL (74-99); Potassium 4.6 mmol/L (3.5-5.1); Sodium 142 mmol/L (137-145)
== END | disposition home or self-care (01) ==
LOC: LABWHC1 15:47
PROVIDERS: ATTEND Internal Medicine Cardiovascular Disease
DX: Z01.810 Encounter for preprocedural cardiovascular examination (principal); Z01.812 Encounter for preprocedural laboratory examination; I25.10 Atherosclerotic heart disease of native coronary artery without angina pectoris
CPT/HCPCS: 36415; 80048; 84484; 85027; 85730

== ENCOUNTER → 2018-05-12 | Outpatient (CLI) | payer OTHER ==
--- NOTE | 2018-05-12 13:47 | CT ---
EXAMINATION TYPE: CT soft tissue neck wo con DATE OF EXAM: 05/12/2018 HISTORY: Swelling posterior neck COMPARISON: 08/27/2015 CT DLP: 812 mGycm. Automated Exposure Control for Dose Reduction was Utilized. TECHNIQUE: CT scan of the neck is performed without contrast, axial images are obtained, coronal and sagittal reformatted images are reviewed. FINDINGS: Airway: True and false focal cords appear unremarkable. Piriform sinuses and vallecula are also unrem arkable. At the level of the uvula there is slight limitation in evaluation given extensive spray art ifact from dental fillings. Torus tubarius are unremarkable. Airway is maintained. Parotid/submandibular glands: No gross abnormality seen. Carotid/Vascular Structures: Suboptimally evaluated without contrast. Osseous Structures: Grossly intact with reversal of the usual cervical lordosis and moderate multilev el degenerative change. Other: Just lateral to the palpable abnormality. The marker there is a circumscribed fat attenuated s tructure measuring 4.2 x 1.8 cm with a thin rim representing a deep lipoma. No mural nodule or suspic ious internal complexity is seen. Additional left supraclavicular lipoma measures 2.7 x 3.6 x 3.8 cm. There is marked enlargement of the left lobe of the thyroid with an ill-defined hypoattenuated lesion measuring 2.4 x 2.7 cm. There is substernal extent to the thyroid gland. Thyroid ultrasound is recom mended for further characterization. Scattered multifocal subsegmental atelectasis is seen within the upper lungs. IMPRESSION: 1. Palpable left lateral posterior neck abnormality corresponds to a benign-appearing lipoma. Additio nal left neck intramuscular lipoma is seen. 2. Enlarged thyroid gland with a nodule measuring up to 3.8 cm on the left for which ultrasound is re commended. 3. Reversal of the usual cervical lordosis and multilevel moderate degenerative disc disease.
== END | disposition home or self-care (01) ==
LOC: RADCTMAIN 12:10
PROVIDERS: ATTEND Internal Medicine
DX: D17.0 Benign lipomatous neoplasm of skin and subcutaneous tissue of head, face and neck (principal); E04.9 Nontoxic goiter, unspecified
CPT/HCPCS: 70490

== ENCOUNTER → 2023-06-18 | Outpatient (CLI) | payer MEDICARE ==
[2023-06-18 11:35] LABS: ALT 22 U/L (8-44); AST 22 U/L (13-35); Albumin 4.5 g/dL (3.8-4.9); Alkaline Phosphatase 80 U/L (41-126); BUN/Creat Ratio 13.75 Ratio (12.00-20.00); Calcium 10.1 mg/dL (8.7-10.3); Carbon Dioxide 27.5 mmol/L (21.6-31.8); Chloride 103 mmol/L (96-109); Chol/HDL Ratio 1.68 Ratio; Globulin 2.5 g/dL (1.6-3.3); Glucose 131 mg/dL (70-110); LDL Cholesterol,Calculated 51.5 mg/dL (0.0-131.0); Potassium 4.4 mmol/L (3.5-5.5); Sodium 143 mmol/L (135-145); Total Bilirubin 1.3 mg/dL (0.3-1.2); VLDL Calculation 10.88 mg/dL (5.00-40.00)
[2023-06-18 12:29] LABS: Basophils # (A) 0.07 X 10*3/uL (0.00-0.10); Basophils % (A) 1.1 %; Eosinophils # (A) 0.22 X 10*3/uL (0.04-0.35); Eosinophils % (A) 3.5 %; HCT 48.1 % (37.2-46.3); HGB 15.7 g/dL (12.0-15.0); Lymphocytes # (A) 2.05 X 10*3/uL (0.90-5.00); Lymphocytes % (A) 32.3 %; MCH 29.7 pg (27.0-32.0); MCHC 32.6 g/dL (32.0-37.0); MCV 90.9 FL (80.0-97.0); Mean Platelet Volume 10.6 FL (9.5-12.2); Monocytes % (A) 12.6 %; NRBC Per 100 WBC 0 X 10*3/uL (0.00-0.01); Neutrophils # (A) 3.18 X 10*3/uL (1.80-7.70); Neutrophils % (A) 50.2 %; Platelet Count 300 X 10*3/uL (140-440); RBC 5.29 X 10*6/uL (4.10-5.20); WBC 6.34 X 10*3/uL (4.50-10.00)
== END | disposition home or self-care (01) ==
LOC: LABWHC1 07:45
PROVIDERS: ATTEND Internal Medicine
DX: I10 Essential (primary) hypertension (principal); E78.00 Pure hypercholesterolemia, unspecified
CPT/HCPCS: 36415; 80053; 80061; 84443; 85025

== ENCOUNTER → 2023-09-22 | Outpatient (CLI) | payer MEDICARE ==
--- NOTE | 2023-09-22 13:12 | XR ---
EXAMINATION TYPE: XR shoulder limited LT DATE OF EXAM: 09/22/2023 COMPARISON: NONE HISTORY: 68-year-old female M25.512, left shoulder pain TECHNIQUE: AP view FINDINGS: Mild degenerative changes in joint with marginal spurring and mild capsular hypertrophy. Boland bacromial space is preserved. No acute fracture, subluxation, dislocation seen. Visualized left hemit horax appears clear. IMPRESSION: Limited assessment given only the single AP view. 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 No acute osseous abnorma lity seen.
== END | disposition home or self-care (01) ==
LOC: RADXRMAIN 12:40
PROVIDERS: ATTEND Internal Medicine
DX: M19.012 Primary osteoarthritis, left shoulder (principal)

== ENCOUNTER → 2024-07-21 | Outpatient (CLI) | payer MEDICARE ==
--- NOTE | 2024-07-21 14:02 | CT ---
MRI brain with and without contrast. HISTORY: Transient ischemic attack. COMPARISON: 04/25/2015. TECHNIQUE: Multiple axial images were obtained through the brain with and without contrast. FINDINGS: The ventricles, basal cisterns and sulci over convexities are within normal limits and there is no ma ss affect or shift of midline structures. There is a stable 11 mm densely calcified extra-axial mass along the left inner convexity in the temp oral region consistent with a stable meningioma. There is no acute intra or extra-axial hemorrhage. The posterior fossa including the brainstem, fourth ventricle and cerebellopontine angles appear norm al. The intraorbital contents are normal and symmetric. Following contrast administration, there is no pathological enhancement throughout the brain parenchy ma. The intraorbital contents are normal and symmetric. Visualized paranasal sinuses and mastoid air cell s are well aerated. IMPRESSION: 1. No acute bleed or mass effect. 2. Stable 11 mm meningioma along the left temporal inner convexity [facility], , 07/21/2024 2:00 PM
--- NOTE | 2024-07-21 21:20 | US ---
EXAMINATION TYPE: US carotid duplex BILAT DATE OF EXAM: 07/21/2024 COMPARISON: US 2016 CLINICAL INDICATION: Female, 68 years old with history of G45.9 TRANSIENT ISCHEMIC ATTACK; TECHNIQUE: Grayscale, color Doppler and spectral Doppler evaluation of the bilateral carotid systems and vertebral arteries. Indirect Doppler criteria was utilized. FINDINGS: EXAM MEASUREMENTS: RIGHT: Peak Systolic Velocity (PSV) cm/sec ----- Right CCA: 66.0 ----- Right ICA: 66.6 ----- Right ECA: 71.2 ICA/CCA ratio: 1.0 RIGHT: End Diastole cm/sec ----- Right CCA: 19.7 ----- Right ICA: 27.1 ----- Right ECA: 18.0 LEFT: Peak Systolic Velocity (PSV) cm/sec ----- Left CCA: 65.5 ----- Left ICA: 73.5 ----- Left ECA: 79.6 ICA/CCA ratio: 1.1 LEFT: End Diastole cm/sec ----- Left CCA: 23.7 ----- Left ICA: 23.0 ----- Left ECA: 23.0 VERTEBRALS (direction of flow): Right Vertebral: Antegrade Left Vertebral: Antegrade Rhythm: Normal IMPRESSION: No hemodynamically significant internal carotid artery stenosis on either side. Criteria for Assigning % of Stenosis / Diameter reduction (Estimation based on the indirect measurements of the internal carotid artery velocities (ICA PSV). 1. Normal (no stenosis)=ICA PSV < 180 cm/s: ratio < 2.0: ICA EDV<40 cm/s. 2. Less than 50% stenosis=ICA PSV < 180 cm/s: ratio < 2.0: ICA EDV<40 cm/s. 3. 50 to 69% stenosis=ICA PSV of 180 to 230 cm/s: ration 2.0 ? 4.0: ICA EDV 40-100 cm/s. PSV 125-180 cm/sec and ICA/CCA PSV Ratio ? 2.0 is also consistent with 50-69% stenosis 4. Greater than 70% stenosis to near occlusion= ICA PSV > 230 cm/s: ratio > 4.0: ICA EDV > 100 cm/s. 5. Near occlusion= ICA PSV velocities may be low or undetectable: variable ratio and ICA EDV. 6. Total occlusion=unable to detect flow. [facility], , 07/21/2024 9:17 PM
== END | disposition home or self-care (01) ==
LOC: RADCTMAIN 13:05
PROVIDERS: ATTEND Internal Medicine
DX: G45.9 Transient cerebral ischemic attack, unspecified (principal); G93.89 Other specified disorders of brain
CPT/HCPCS: 93225; 93880; 70470; Q9967